=== PATIENT | female | born 1960 | race Caucasian/White ===

== ENCOUNTER 2021-11-25 05:14 | Emergency (ER) | payer MEDICAID ==
[~2021-11-25] VITALS: Ht 157.5 cm; Wt 45.4 kg
--- NOTE | 2021-11-25 05:15 | NUR ---
TO ER BED 5. [id number] C/O AMS , PER DAUGHTER PT WAS IN HOSPICE PRIOR. HX OF BREAST CANCER. PT IS AAOX0. BUSHRA STOKE BREATHING NOTED ON ARRIVAL. NASAL CANNULA PROVIDED AT 2L. CONNECTED TO MONITOR. AWAITING MD ORELLANA
--- NOTE | 2021-11-25 05:23 | NUR ---
IV LINE ESTABLISHED, LAC 20G. BLOOD COLLECTED AND SENT TO LAB
[2021-11-25] MEDS ORDERED: DEXTROSE 50%-WATER 50 ML DISP.SYRIN ONE (05:29)
[2021-11-25] MEDS: IV NS 0.9% 500 ML BAG IV ONE (05:34)
--- NOTE | 2021-11-25 05:36 | NUR ---
XRAY AT BEDSIDE
[2021-11-25] MEDS ORDERED: HYDROMORPHONE 1 MG/1 ML DISP.SYRIN ONE ×3 (05:41→06:42)
[2021-11-25] MEDS: DEXTROSE 50%-WATER 50 ML DISP.SYRIN IVP ONE (05:43)
[2021-11-25] MEDS: HYDROMORPHONE 1 MG/1 ML DISP.SYRIN IV ONE ×2 (05:44→06:19)
[2021-11-25 05:45] LABS: BASOPHILS # (AUTO) 0.1 K/uL (0.0-0.2); EOSINOPHILS % (AUTO) 0.4 % (0.0-6.0); HEMATOCRIT 21 % (33-45); LYMPHOCYTES # (AUTO) 1.9 K/uL (0.8-4.8); MEAN CORPUSCULAR HGB CONC 31 g/dl (31.0-36.0); MEAN CORPUSCULAR VOLUME 108 fL (82-100); MONOCYTES # (AUTO) 0.9 K/uL (0.1-1.30); MONOCYTES % (AUTO) 7.2 % (2.0-12.0); NEUTROPHILS % (AUTO) 75.4 % (43.0-81.0); PLATELET COUNT (AUTO) 112 K/uL (150-450)
[2021-11-25] MEDS: IV D5/0.45 NACL 1,000 ML IV ONE (06:04)
[2021-11-25 06:05] LABS: ALBUMIN 1.6 g/dL (3.4-5.0); BILIRUBIN,DIRECT 13.5 mg/dL (0.0-0.2); CALCIUM, SERUM 8.6 mg/dL (8.5-10.1); CREATININE 1.4 mg/dL (0.6-1.3); TOTAL PROTEIN, SERUM 4.1 g/dL (6.4-8.2)
--- NOTE | 2021-11-25 06:15 | NUR ---
unable to get temp at this time
--- NOTE | 2021-11-25 06:18 | NUR ---
CL glu 27, k 7.9 dr. mathur notofied
[2021-11-25 06:20] LABS: POTASSIUM 7.9 mmol/L (3.5-5.1)
[2021-11-25] MEDS ORDERED: HYDROMORPHONE MDV 1 MG in IV D5W 50 ML IV PRN (06:30)
[2021-11-25] MEDS ORDERED: LORAZEPAM INJ 2 MG/ML VIAL ONE (06:32)
[2021-11-25] MEDS ORDERED: GLYCOPYRROLATE 0.2 MG/ML VIAL ONE (06:32)
--- NOTE | 2021-11-25 06:38 | NUR ---
attempted to waste dilaudid 0.5 on omnicell, unable, wasted dilaudid 0.5mg with primary nurse kahlil
[2021-11-25 06:43] LABS: RED BLOOD CELL COUNT(AUTO) 1.93 MIL/uL (4.0-5.2)
[2021-11-25] MEDS: GLYCOPYRROLATE 0.2 MG/ML VIAL IV ONE (06:43)
[2021-11-25] MEDS: LORAZEPAM INJ 2 MG/ML VIAL IV ONE (06:43)
[2021-11-25 06:44] LABS: HEMOGLOBIN 6.5 g/dL (11.5-14.8)
--- NOTE | 2021-11-25 06:44 | NUR ---
HEMOGLOBIN 6.5, MADE AWARE
--- NOTE | 2021-11-25 07:06 | NUR ---
UNABLE TO FIND PULSE, MD MADE AWARE. DR RUIZ CONFIRMED NO PULSE WITH FIXED DILATED PUPILS, MD CALLED TIME OF .
--- NOTE | 2021-11-25 07:06 | NUR ---
DR. LAW EASON CALLED TIME OF WITNESSED WITH RN. EUGENE SUBRAMANIAN AT PT'S BEDSIDE
--- NOTE | 2021-11-25 07:13 | NUR ---
[facility] nurse paged.
--- NOTE | 2021-11-25 07:17 | NUR ---
spoke with nurse rafat to inform that the patien t has . a councelor will be coming in. no mortuary info at this time
--- NOTE | 2021-11-25 07:22 | NUR ---
[facility][phone], THEY CONFIRMED NOT A CORONERS CASE
--- NOTE | 2021-11-25 07:36 | NUR ---
CALLED [facility] & SPOKE TO ROXANE
--- NOTE | 2021-11-25 07:50 | NUR ---
PT'S ATTENDING MD, DR. VAN SCHNEIDER WAS PAGED TO NOTIFY PT'S . AWAITING CALL BACK.
--- NOTE | 2021-11-25 08:28 | NUR ---
FAMILY AT THE BEDSIDE
--- NOTE | 2021-11-25 08:30 | NUR ---
THE PATIENT IS TRANSFERED TO [facility] PER POLICY
[2021-11-25 08:46] VITALS: BP 112/66
[2021-11-25 09:11] LABS: EOSINOPHILS % (MANUAL) 1 % (0-4); LYMPHOCYTES % (MANUAL) 10 % (16-48); METAMYELOCYTES % 2 % (0-0); MONOCYTES % (MANUAL) 13 % (0-11.0); MYELOCYTES % 4 % (0-0); NEUTROPHILS % (MANUAL) 70 (42-76)
[2021-11-25 09:14] LABS: WHITE BLOOD COUNT (AUTO) 9.7 K/uL (4.3-11.0)
== END 2021-11-25 08:47 ==
LOC: ER 05:23
DX: C79.81 Secondary malignant neoplasm of breast (principal); E87.5 Hyperkalemia; K72.90 Hepatic failure, unspecified without coma; E16.2 Hypoglycemia, unspecified; E87.1 Hypo-osmolality and hyponatremia; R74.01 Elevation of levels of liver transaminase levels; E80.6 Other disorders of bilirubin metabolism; Z85.3 Personal history of malignant neoplasm of breast
CPT/HCPCS: 36415; 71045; 80048; 80076; 82962; 83690; 84484; 85007; 85025; 85730; 93005; 96365; 96367; 99291; 99292; J1170 ×3; J2060; J3490 ×2; J7060